=== PATIENT | female | born 1965 | race Caucasian/White ===

== ENCOUNTER → 2018-12-15 08:12 | Outpatient (CLI) | payer BC, SELFPAY ==
[2018-12-15 08:55] LABS: Basophils # 0.1 K/mm3 (0-0.2); Basophils % 0.7 % (0.1-2.0); Eosinophils # 0.1 K/mm3 (0.0-0.4); Eosinophils % 1.5 % (0.1-12.0); Hematocrit 46.7 % (37.0-47.0); Hemoglobin 15.7 g/dL (12.2-16.2); Lymphocytes # 2.4 K/mm3 (0.7-4.5); Lymphocytes % 36.2 % (10-50); Mean Corpuscular HGB Conc 33.6 g/dL (31.8-35.4); Mean Corpuscular Hemoglobin 29.7 pg (27.0-31.2); Mean Corpuscular Volume 88.6 fl (81-99); Mean Platelet Volume 7.5 fl (7.4-10.4); Monocytes # 0.4 K/mm3 (0.1-1.0); Monocytes % 5.3 % (1.7-9.3); Neutrophils # 3.7 K/mm3 (1.8-7.8); Neutrophils % 56.2 % (37.0-80.0); Platelet Count 336 K/mm3 (142-424); Red Blood Count 5.27 M/mm3 (4.20-5.40); Red Cell Distribution Width 13.8 % (11.5-17.5); White Blood Count 6.5 K/mm3 (4.8-10.8)
[2018-12-15 10:29] LABS: Alanine Aminotransferase 31 U/L (12-78); Albumin Level 3.5 gm/dL (3.4-5.0); Albumin/Globulin Ratio 1.1 (1.1-1.8); Alkaline Phosphatase 105 U/L (46-116); Anion Gap 15.4 mEq/L (5-15); Aspartate Amino Transferase 12 U/L (15-37); Bilirubin,Total 0.4 mg/dL (0.2-1.0); Blood Urea Nitrogen 11 mg/dL (7-18); Calcium 9.3 mg/dL (8.5-10.1); Carbon Dioxide 25 mmol/L (21.0-32.0); Chloride 104 mmol/L (98-107); Chol/HDL Ratio 6.9 (1-3.5); Cholesterol 235 mg/dL (140-200); Creatinine,Serum 1.04 mg/dL (0.55-1.02); Estimated Glomerular Filt Rate 55 ml/min (>60); GFR (African American) 67 ML/MIN (>60); Globulin 3.1 gm/dl (1.3-3.2); Glucose 106 mg/dL (74-106); HDL Cholesterol 34 mg/dL (29-89); LDL Cholesterol 152 mg/dL (0-130); Potassium 4.4 mmoL/L (3.5-5.1); Sodium 140 mmol/L (136-145); Total Protein,Serum 6.6 gm/dL (6.4-8.2); Triglycerides 243 mg/dL (30-200); Uric Acid 6.1 mg/dL (2.6-7.2); VLDL Cholesterol 49 mg/dL (0-40)
[2018-12-15 10:41] LABS: Hemoglobin A1C 6.1 % (0.0-7.0)
[2018-12-15 10:45] LABS: Erythrocyte Sedimentation Rate 16 mm/hr (0-30)
[2018-12-17 09:45] LABS: Vitamin B12 526 pg/mL (232-1245); Vitamin D 25 Hydroxy 22.4 ng/mL (30.0-100.0)
== END ==
PROVIDERS: Visit Provider Nurse Practitioner Family
DX: E78.5 Hyperlipidemia, unspecified (principal); R73.9 Hyperglycemia, unspecified; E53.8 Deficiency of other specified B group vitamins; I10 Essential (primary) hypertension; M25.542 Pain in joints of left hand; M25.541 Pain in joints of right hand
CPT/HCPCS: 36415; 80053; 80061; 82607; 82652; 83036; 84443; 84550; 85025; 85651

== ENCOUNTER → 2020-01-31 12:36 | Outpatient (CLI) | payer BC, SELFPAY ==
[2020-01-31 13:30] LABS: Basophils # 0.1 K/mm3 (0-0.2); Basophils % 1.1 % (0.1-2.0); Eosinophils # 0.2 K/mm3 (0.0-0.4); Eosinophils % 2.6 % (0.1-12.0); Hematocrit 45.1 % (37.0-47.0); Lymphocytes # 2.4 K/mm3 (0.7-4.5); Lymphocytes % 42.8 % (10-50); Mean Corpuscular HGB Conc 33.2 g/dL (31.8-35.4); Mean Corpuscular Hemoglobin 30.2 pg (27.0-31.2); Mean Corpuscular Volume 91.1 fl (81-99); Mean Platelet Volume 7.9 fl (7.4-10.4); Monocytes # 0.4 K/mm3 (0.1-1.0); Monocytes % 7.2 % (1.7-9.3); Neutrophils # 2.6 K/mm3 (1.8-7.8); Neutrophils % 46.2 % (37.0-80.0); Platelet Count 299 K/mm3 (142-424); Red Blood Count 4.95 M/mm3 (4.20-5.40); White Blood Count 5.7 K/mm3 (4.8-10.8)
[2020-01-31 13:49] LABS: Hemoglobin A1C 6.2 % (4.0-6.0)
[2020-01-31 16:03] LABS: Alanine Aminotransferase 30 U/L (12-78); Albumin Level 3.9 g/dl (3.5-5.0); Albumin/Globulin Ratio 1.4 (1.1-1.8); Alkaline Phosphatase 113 U/L (38-126); Aspartate Amino Transferase 31 U/L (14-36); Bilirubin,Total 0.4 mg/dl (0.2-1.3); Blood Urea Nitrogen 12 mg/dl (7-17); Calcium 9.9 mg/dl (8.4-10.2); Carbon Dioxide 28 mmol/L (22.0-30.0); Chloride 103 mmol/L (98-107); Chol/HDL Ratio 6.5 (1-3.5); Cholesterol 261 mg/dl (140-200); Estimated Glomerular Filt Rate 65 ml/min (>60); GFR (African American) 79 ML/MIN (>60); Globulin 2.7 g/dL (1.3-3.2); Glucose 106 mg/dl (74-100); HDL Cholesterol 40 mg/dl (40-60); Sodium 139 mmol/L (136-145); Total Protein,Serum 6.6 g/dl (6.3-8.2); Triglycerides 316 mg/dl (30-150); VLDL Cholesterol 63 mg/dL (0-40)
[2020-01-31 16:13] LABS: Direct LDL Cholesterol 170.12 mg/dL (100-129)
[2020-01-31 16:51] LABS: Vitamin B12 828 pg/mL (239-931)
== END ==
PROVIDERS: Visit Provider Nurse Practitioner Family
DX: E78.5 Hyperlipidemia, unspecified (principal); I10 Essential (primary) hypertension; R73.9 Hyperglycemia, unspecified; E53.8 Deficiency of other specified B group vitamins; M25.461 Effusion, right knee
CPT/HCPCS: 36415; 80053; 80061; 82607; 83036; 84550; 85025

== ENCOUNTER → 2020-10-22 13:20 | Outpatient (CLI) | payer BC, SELFPAY ==
--- NOTE | 2020-10-22 13:26 | XR_ITS ---
PROCEDURE: XR HIP RT 2-3V W/PELVIS CLINICAL INDICATION: RIGHT HIP PAIN COMPARISON: CR [id number] HIP RT 2-3V W/PELVIS IF PERFOR from 01/05/2017 FINDINGS: No fracture or dislocation is evident. No significant degenerative change. No lytic or blastic change. Unremarkable soft tissues. IMPRESSION: No acute findings. Dictated by: Sha Baires MD 10/22/2020 17:30 Sha Baires MD in [place] 10/22/2020 17:30
--- NOTE | 2020-10-22 13:29 | XR_ITS ---
PROCEDURE: XR LUMBAR SPINE MIN 4V CLINICAL INDICATION: ACUTE RIGHT SIDED LOWER BACK PAIN COMPARISON: No exams were available for comparison FINDINGS: No fracture or dislocation. No lytic or blastic change. There is normal mineralization. There is sclerosis of the lower aspect of the left SI joint. Calcification of the iliolumbar ligament noted on the left at L5. There is degenerative disc disease T12 to L4 most severe at L2-L3. Endplate osteophytes are present from L1-L5. There is degenerative disc disease at L5-S1. Facet hypertrophic changes with sclerosis is present at L5-S1. Other findings:None. IMPRESSION: Degenerative changes as described above. Dictated by: Sha Baires MD 10/22/2020 17:29 Sha Baires MD in [place] 10/22/2020 17:29
== END ==
PROVIDERS: PCP Nurse Practitioner Family; Visit Provider Nurse Practitioner Family
DX: M25.551 Pain in right hip (principal); M54.41 Lumbago with sciatica, right side
CPT/HCPCS: 72110; 73502

== ENCOUNTER 2020-11-15 09:30 | Outpatient (RCR) | payer BC, SELFPAY ==
--- NOTE | 2020-10-31 15:18 | HMH.PTOPEV ---
PT Outpatient Evaluation Rehab PT Outpatient Evaluation Start: 10/31/20 14:17 Freq: Status: Active Protocol: Document 10/31/20 14:59 KRIS (Rec: 10/31/20 15:17 KRIS [id number]) Electronically Signed By Warren Dunn, PT 10/31/20 14:59 Outpatient Therapy Subjective History Subjective History Patient is a 55 year old female presenting to outpatient PT with reports of chronic LBP with acute RLE radicular symptoms. She was referred for LBP with sciatica and IT band syndrome. Most recent imaging indicates multi -level DDD and osteophytes of the entire lumbar spine. R hip imaging negative. Special tests indicate relief of RLE symptoms with lumbar extension indicating possible disc pathology. Comorbidties include hx of CS discectomy ( 12 ya), LS discectomy (15 ya) and HTN. Chief Complaint Pain,Spasms,Stiff,Weakness Symptom Type Ache,Dull Symptoms Relieved By Rest/Positioning,Heat,Ice, Prescription Meds Symptoms Aggravated By Standing,Bending/Stooping, Physical Activity,Walking, Lifting Current Functional Limitations Lifting,Housework,Standing, Recreation Activity,Walking, Stairs,Balance,Bending/ Stooping Symptom Description Constant but Variable Level of pain today (0-10) 5 Pain scale - at its best (0-10) 4 Pain scale - at its worst (0-10) 9 Lumbopelvic Eval Posture Thoracic Spine Posture Standing Position Increased Kyphosis Lumbar Spine Posture Standing Position Increased Lordosis Assistive device Assistive Devices None / NA Palapation tenderness right lumbar spinal tenderness Yes: L1-S1 3/4 paraspinal tenderness Yes: buttock tenderness Yes: 3/4 Accessory Movement L-spine Vertebrae Accessory Movements Right P/A Gunlock that Elicit Symptoms L2 right L3 right L4 right L5 right S1 right Range of Motion Lumbar Spine Active Flexion Range of 30 pain Motion (degrees) Lumbar Spine Active Extension Range of 20 Motion (degrees)
== END 2020-11-20 09:35 | disposition home or self-care (01) ==
LOC: PT 09:30
PROVIDERS: Visit Provider Nurse Practitioner Family
DX: M54.41 Lumbago with sciatica, right side (principal); M76.31 Iliotibial band syndrome, right leg
CPT/HCPCS: 97010; 97014; 97110; 97163; G0283

== ENCOUNTER → 2021-05-08 15:56 | Outpatient (CLI) | payer BC, SELFPAY ==
[2021-05-08 17:11] LABS: Blood Urea Nitrogen 15 mg/dl (7-17); Estimated Glomerular Filt Rate 65 ml/min (>60); GFR (African American) 78 ML/MIN (>60)
== END ==
PROVIDERS: PCP Nurse Practitioner Family; Visit Provider Nurse Practitioner Family
DX: Z01.812 Encounter for preprocedural laboratory examination (principal)
CPT/HCPCS: 36415; 82565; 84520

== ENCOUNTER → 2021-05-09 16:48 | Outpatient (CLI) | payer BC, SELFPAY ==
--- NOTE | 2021-05-09 17:11 | MR_ITS ---
PROCEDURE INFORMATION: Exam: MR Lumbar Spine Without and With Contrast Exam date and time: 05/09/2021 5:11 PM Age: 55 years old Clinical indication: Low back pain; Prior surgery; Surgery date: 6+ months; Additional info: Lumbago with sciatica, right side. HX back surgery x12yrs ago. Lbp with RT hip pain and posterior aspect of calf. Numbness in RT leg. Symptoms x3wks. No injury or trauma. 20ml prohance given. TECHNIQUE: Imaging protocol: Multiplanar magnetic resonance images of the lumbar spine without and with intravenous contrast. Contrast material: PROHANCE; Contrast volume: 20 ml; Contrast route: IV; COMPARISON: CR XR LUMBAR SPINE MIN 4V 10/22/2020 1:47 PM FINDINGS: Vertebrae: Vertebral body heights and alignment are within normal limits. There is multilevel degenerative disc disease and degenerative endplate change. Marrow signal is heterogeneous. There may be some Modic type 1 change in the superior endplate of L4. Spinal epidural space: Post gadolinium spine: Following administration of intravenous gadolinium, there is some enhancement of the anterior epidural fat along the posterior edge of the L3 and L4 vertebral bodies. No disc or significant paraspinal enhancement is identified. Spinal cord: The conus medullaris is normal in appearance terminating at the level of L1/2. L1-L2: There is a shallow disc bulge, bilateral facet arthropathy and ligamentum flavum infolding. The spinal canal and neural foramina are adequate. L2-L3: There is a shallow disc bulge, bilateral facet arthropathy and ligamentum flavum infolding. This results in mild central canal stenosis. There is mild left neural foraminal stenosis. The right neural foramen is adequate. L3-L4: There is a shallow disc bulge with right lateral recess disc herniation. There is bilateral facet arthropathy and ligamentum flavum infolding. This results in effacement of the right lateral recess, and moderate spinal stenosis. There is moderate right neural foraminal stenosis. Left neural foramen is adequate. L4-L5: There is a broad based disc bulge, bilateral facet arthropathy and ligamentum flavum infolding. This results in mild central canal stenosis. There is mild left neural foraminal stenosis. The right neural foramen is adequate. L5-S1: There is severe loss of disc height. There is a broad-based disc bulge and bilateral facet arthropathy. The central canal is adequate. There is mild left neural foraminal stenosis. The right neural foramen is adequate. Soft tissues: Unremarkable. IMPRESSION: 1. Multilevel lumbar spondylosis. 2. Disc bulge with right lateral recess disc herniation at L3/4. This results in severe right lateral recess stenosis, moderate central canal stenosis, and probable compression of the traversing L4 nerve root in the right lateral recess. 3. Mild spinal stenosis at L2/3 and L4/5. 4. Neural foraminal stenosis as described. Please see above for detail.
== END ==
PROVIDERS: PCP Nurse Practitioner Family; Visit Provider Nurse Practitioner Family
DX: M54.41 Lumbago with sciatica, right side (principal)
CPT/HCPCS: 72158; 76376; A9576

== ENCOUNTER 2021-06-23 10:20 | Emergency (ER) | payer BC, SELFPAY ==
[2021-06-23 11:12] VITALS: BP 112/79; PULSE 107; RESP 17; TEMP 37.4; O2SAT 96; BMI 32.8
[2021-06-23 11:17] LABS: UTC Strep Screen (Rapid) Negative (Negative)
--- NOTE | 2021-06-23 12:16 | HMH.EDUTC ---
[facility] Disposition Clinical Impression: Pharyngitis Qualifiers: Pharyngitis/tonsillitis etiology: unspecified etiology Qualified Code(s): J02.9 - Acute pharyngitis, unspecified Sinusitis Qualifiers: Sinusitis location: unspecified location Chronicity: acute Recurrence: non-recurrent Qualified Code(s): J01.90 - Acute sinusitis, unspecified Disposition: Home, Self-Care Condition on Discharge: Good Instructions: DI for Sinusitis Additional Instructions: Drink plenty of fluids. Take tylenol or ibuprofen for pain or fever. Take the medications as directed. Follow up with your regular doctor. GO TO THE ER FOR ANY WORSENING SYMPTOMS Quarantine until you know the results of your covid-19 test. Notify your school or workplace of your results and follow their instructions regarding return to work/school. Prescriptions: Promethazine/Dextromethorphan [Promethazine-Dm Syrup] 5 ml PO Q6HP PRN #180 ml PRN Reason: Cough Transmission Status: Received by [id number] methylPREDNISolone [Medrol] 4 mg PO DIRECTED 6 Days #21 packet Transmission Status: Received by [id number] Azithromycin [Z-Isaak 250mg Tab*] 250 mg PO UD DOSE PK #6 tab Transmission Status: Received by [id number] Referrals: Mirela Siegel APRN [Primary Care Provider] - Time of Disposition: 12:49 Medical Decision Making - Medical Records Medical records reviewed: No: I reviewed the patient's medical records. - Maged Inquiry Pt receiving controlled substance: No Vital Signs: 06/23/21 11:12 06/23/21 12:51 Temperature 99.4 F 99.4 F Temperature Source Oral Pulse Rate 107 H Pulse Rate [Right] 107 H Respiratory Rate 17 17 Blood Pressure 112/79 Blood Pressure [Left Arm] 112/79 Blood Pressure Mean [Left Arm] 90 02 Sat by Pulse Oximetry 96 - Lab Data Lab results reviewed: Yes: I reviewed the patient's lab results. Lab Results 06/23/21 11:09: Strep Scn Rapid Clinic Negative Orders (Tests/Meds): ORDERS Category Date Time Status Strep Screen Confirmation Stat Micro 06/23/21 11:09 Received [facility] HPI - General Stated complaint: sinus congestion, stiff neck, sore throat Time Seen by Provider: 06/23/21 12:16 Mode of Arrival: Ambulatory Source of Information: Patient Limitations: No Limitations Description of Symptoms (Recalled from Triage Doc. by RN): pt c/o a sore throat, cough and nasal drainage x3 days. HEENT Symptoms (Recalled from RN notes): Yes Resp Symptoms (Recalled from RN notes): Yes Skin Symptoms (Recalled from RN notes): No MS Symptoms (Recalled from RN notes): No Functional Status (Recalled from RN notes): wnl - History of Present Illness Provider Complaint: She c/o sore throat for suellen past 3 days. - Related Data Home Medications Medication Instructions Recorded Confirmed aspirin 81 mg tablet,delayed 81 mg PO DAILY 12/20/18 03/03/19 release citalopram 20 mg tablet 10 mg PO DAILY 12/20/18 03/03/19 varenicline 0.5 mg tablet 0.5 mg PO DAILY 12/20/18 03/03/19 Cetirizine HCl [Zyrtec] 10 mg PO DAILY 01/05/19 03/03/19 Ergocalciferol (Vitamin D2) 400 unit PO DAILY 01/05/19 03/03/19 [Vitamin D] hydroCHLOROthiazide 12.5 mg PO DAILY 01/05/19 03/03/19 [Hydrochlorothiazide 12.5mg Tab] Previous Rx's Medication Instructions Recorded amoxicillin 500 mg capsule 500 mg PO Q12H PRN 10 Days #20 cap 03/03/19 Azithromycin [Z-Isaak 250mg Tab*] 250 mg PO UD DOSE PK #6 tab 06/23/21 Promethazine/Dextromethorphan 5 ml PO Q6HP PRN #180 ml 06/23/21 [Promethazine-Dm Syrup] methylPREDNISolone [Medrol] 4 mg PO DIRECTED 6 Days #21 06/23/21 packet Allergies Allergy/AdvReac Type Severity Reaction Status Date / Time oxycodone [From Percocet] AdvReac DROWSINESS Verified 03/03/19 12:13 - Worker's Comp Is this a Worker's Comp case?: No [facility] History - Hepatitis A Screen Drug use history?: No High risk sexual behaviors?: No History of sexually transmitted
[2021-06-23 12:51] VITALS: BP 112/79; PULSE 107; RESP 17; TEMP 37.4
== END 2021-06-23 12:52 | disposition home or self-care (01) ==
PROVIDERS: Emergency Provider Nurse Practitioner Family; PCP Nurse Practitioner Family
DX: J02.9 Acute pharyngitis, unspecified (principal); J01.90 Acute sinusitis, unspecified; F17.210 Nicotine dependence, cigarettes, uncomplicated
CPT/HCPCS: 87880; 99203; C9803; G0463; U0003; U0005

== ENCOUNTER → 2021-07-11 10:48 | Outpatient (CLI) | payer BC, SELFPAY ==
--- NOTE | 2021-07-11 10:53 | XR_ITS ---
FINAL REPORT CLINICAL HISTORY: SMOKER, PRE-OP FINDINGS: Two views of the chest were obtained. The heart size and pulmonary vascularity are within normal limits. The mediastinum is normal. There is mild bronchial wall thickening may represent bronchitis. There is no pneumothorax. There are postoperative changes of the lower cervical spine. IMPRESSION: Mild bronchial wall thickening may represent bronchitis. Reviewed, Interpreted and Dictated by Dilshad Lyon III, MD Transcribed by Everett Leal Authenticated by Dilshad Lyon III, MD on 07/11/2021 11:16:00 AM [facility]
== END ==
PROVIDERS: PCP Nurse Practitioner Family; Visit Provider Nurse Practitioner Family
DX: R05.9 Cough, unspecified (principal)
CPT/HCPCS: 71046

== ENCOUNTER → 2021-12-02 16:10 | Outpatient (CLI) | payer BC, SELFPAY | PROVIDERS: PCP Nurse Practitioner Family; Visit Provider Internal Medicine | DX: Z01.812 Encounter for preprocedural laboratory examination (principal); Z20.822 Contact with and (suspected) exposure to COVID-19; Z12.11 Encounter for screening for malignant neoplasm of colon | CPT/HCPCS: C9803; U0003; U0005 ==

== ENCOUNTER 2021-12-04 11:20 | Day surgery (SDC) | payer BC, SELFPAY ==
[2021-11-28 14:50] VITALS: BMI 33.6
[2021-12-04 11:34] VITALS: BP 115/67; PULSE 60; RESP 17; TEMP 36.3; O2SAT 96
--- NOTE | 2021-12-04 11:53 | P.PN_ITS ---
[facility] Anesthesia Checklist - Patient Identification Patient Identification: Arm Band - Structural Data Admitted From: Home Planned Operative Procedure/s: Colonoscopy Consent for Planned Operative Procedure(s) Verified: Yes - NPO Status Verified Time NPO: 07:00 - Additional verifications Anesthesia Reactions: No Hx Blood Transfusions: No Blood Transfusion Reaction: No - Airway Assessment C-Spine Mobility Assessed: Yes TMJ Mobility Assessed: Yes Dentition: Poor Dentition - Neurological Assessment Level of Consciousness: Awake Hx Seizures: No Numbness or tingling in extremities: No - Anesthesia Plan Anesthesia Risk discussed: Yes Anesthesia Plan: Verified ASA Class: II Anesthesia Type: MAC [facility] History I have reviewed the patient's past medical history: Yes Medical History: Reports:: Depression, Hypertension Denies:: Cancer, Diabetes Mellitus Type 1, Diabetes Mellitus Type 2, Internal Pacemaker, MRSA, Seizures *Have you ever received a pneumonia vaccine?: No *Have you received a flu vaccine this season?: Yes Other Medical History: Denies: Blood Transfusion Reaction Anesthesia experience/problems:: None Other Surgeries: Yes: Tubal Ligation, Other. No: Pacemaker Amputation: No Fractures: No - *Social History Last grade of school completed: High school graduate Smoking Status: Current every day smoker Tobacco Type: cigarettes # Packs/Day (cigarettes): 1 Alcohol Intake: never Substance Use Type: denies use *Occupational Status:: employed Housing: house Household Members: none *Travel in the last 8 weeks: None - Psychiatric History Pschychiatric History:: Reports:: Depression Family Hx:: Cancer, Hypertension, Hyperlipidemia
[2021-12-04 12:03] VITALS: O2SAT 96
[2021-12-04 12:36] VITALS: BP 112/72; PULSE 68; RESP 18; TEMP 36.2; O2SAT 93
--- NOTE | 2021-12-04 12:36 | HMH.SCOPE ---
- Procedure: Date: 12/04/21 Patient Date of :: 1965 Procedure Performed:: Screening colonoscopy Indications:: Screening colonosocopy Performing Provider:: Roldan Allen MD Referring Provider:: Mirela Siegel APRN Sedation:: See RN records Procedure:: After placing the patient in the left lateral decubitus position, the colonoscopy was gently inserted into the rectum and under direct visualization advanced to the cecum which was identified by transillumination in the right lower quadrant, identification of the ileocecal valve, appendiceal orifice, and cecal strap. Color, texture, mucosa, and anatomy of the colon were carefully examined with the scope. Findings:: Anal canal: normal Rectum: Six sessile polyps beween 3-5 mm in size. Removed with cold snare polypectomy Sigmoid colon: normal without polyps or inflammatory changes Descending colon: Sessile polyp 10 mm in size. Removed with cold snare polypectomy Splenic flexure: normal Transverse colon: normal without polyps or inflammatory changes Hepatic flexure: normal Ascending colon: normal without polyps or inflammatory changes Cecum: normal Terminal ileum: not visualized Impression: Polyps of rectum and proximal descending colon Recommendations:: Await pathology results Repeat colonoscopy in 3 years Complications:: none Estimated blood obtained (mL): 0
[2021-12-04 12:46] VITALS: BP 109/72; PULSE 70; RESP 18; TEMP 36.2; O2SAT 98
[2021-12-04 12:56] VITALS: BP 109/70; PULSE 68; RESP 18; TEMP 36.2; O2SAT 96
[2021-12-04 13:08] VITALS: BP 109/70; PULSE 68; RESP 18; TEMP 36.2; O2SAT 96
== END 2021-12-04 13:08 | disposition home or self-care (01) ==
LOC: OUTP 11:21
PROVIDERS: PCP Nurse Practitioner Family; Visit Provider Internal Medicine
PROC: 0DJD8ZZ Inspection of Lower Intestinal Tract, Via Natural or Artificial Opening Endoscopic (ICD-10-PCS; CPT 45378; principal; 2021-12-04 12:30)
DX: Z12.11 Encounter for screening for malignant neoplasm of colon (principal); K63.5 Polyp of colon; I10 Essential (primary) hypertension; Z72.0 Tobacco use
CPT/HCPCS: 45385

== ENCOUNTER → 2021-12-06 12:33 | Outpatient (CLI) | payer BC, SELFPAY ==
--- NOTE | 2021-12-06 | CT_ITS ---
FINAL REPORT TECHNIQUE: Axial images were obtained from the lung apex to the mid abdomen by computed tomography. This study was performed with techniques to keep radiation doses as low as reasonably achievable (ALARA). Individualized dose reduction techniques using automated exposure control or adjustment of mA and/or kV according to the patient's size were employed. CLINICAL HISTORY: .smoker-- 1/2 pack x 25 yrs FINDINGS: CHEST CT LOW DOSE CTDI vol (mGy): 2.90 DLP (mGy-cm): 96.38 There is no axillary adenopathy. There is no hilar or mediastinal adenopathy. The heart is normal in size. There is no pericardial or pleural effusion. There is a 2 mm nodule in the medial right upper lobe both seen on image number 23. There is a 3 mm nodule near the major fissure well seen on image number 35. Limited images of the upper abdomen are unremarkable. IMPRESSION: Nodules as above. Lung RADS category 2. Recommend 12 month follow-up low-dose chest CT. Reviewed, Interpreted and Dictated by Dilshad Lyon III, MD Transcribed by Dina Garland Authenticated and [facility]
== END ==
PROVIDERS: PCP Nurse Practitioner Family; Visit Provider Nurse Practitioner Family
DX: Z87.891 Personal history of nicotine dependence (principal); Z12.2 Encounter for screening for malignant neoplasm of respiratory organs
CPT/HCPCS: 71271

== ENCOUNTER → 2022-08-02 11:28 | Outpatient (CLI) | payer BC, SELFPAY ==
[2022-08-02 13:13] LABS: Basophils # 0.1 K/mm3 (0-0.2); Basophils % 1.8 % (0.1-2.0); Eosinophils # 0.1 K/mm3 (0.0-0.4); Eosinophils % 1.9 % (0.1-12.0); Hematocrit 50.9 % (37.0-47.0); Hemoglobin 16.4 g/dL (12.2-16.2); Lymphocytes % 37.4 % (10-50); Mean Corpuscular HGB Conc 32.3 g/dL (31.8-35.4); Mean Corpuscular Hemoglobin 30.5 pg (27.0-31.2); Mean Corpuscular Volume 94.4 fl (81-99); Mean Platelet Volume 8.6 fl (7.4-10.4); Monocytes # 0.4 K/mm3 (0.1-1.0); Monocytes % 6.8 % (1.7-9.3); Neutrophils # 2.8 K/mm3 (1.8-7.8); Platelet Count 265 K/mm3 (142-424); Red Blood Count 5.39 M/mm3 (4.20-5.40); White Blood Count 5.4 K/mm3 (4.8-10.8)
[2022-08-02 13:25] LABS: Chloride 104 mmol/L (98-107); Potassium 4.9 mmoL/L (3.5-5.1); Sodium 141 mmol/L (136-145)
[2022-08-02 13:27] LABS: Amylase 59 U/L (30-110)
[2022-08-02 13:28] LABS: Alanine Aminotransferase 28 U/L (12-78); Albumin/Globulin Ratio 1.6 (1.1-1.8); Alkaline Phosphatase 98 U/L (38-126); Anion Gap 12.9 mEq/L (5-15); Aspartate Amino Transferase 31 U/L (14-36); Bilirubin,Total 0.4 mg/dl (0.2-1.3); Blood Urea Nitrogen 7 mg/dl (7-17); Calcium 9.4 mg/dl (8.4-10.2); Carbon Dioxide 29 mmol/L (22.0-30.0); Estimated Glomerular Filt Rate 65 ml/min (>60); GFR (African American) 78 ML/MIN (>60); Globulin 2.5 g/dL (1.3-3.2); Glucose 88 mg/dl (74-100); Lipase 64 U/L (23-300); Total Protein,Serum 6.5 g/dl (6.3-8.2)
== END ==
PROVIDERS: PCP Nurse Practitioner Family; Visit Provider Nurse Practitioner Family
DX: R10.10 Upper abdominal pain, unspecified (principal); R11.10 Vomiting, unspecified; R19.7 Diarrhea, unspecified
CPT/HCPCS: 36415; 80053; 82150; 83690; 85025

== ENCOUNTER → 2022-08-08 10:21 | Outpatient (CLI) | payer BC, SELFPAY ==
--- NOTE | 2022-08-08 10:24 | FL_ITS ---
FINAL REPORT CLINICAL HISTORY: DIARRHEA,ABD PAIN,VOMITING 1:35 fluoro time FINDINGS: AIR CONTRAST UPPER GI HISTORY: Nausea and vomiting, diarrhea. TECHNIQUE: The patient ingested thick and thin barium contrast. Effervescent crystals were also administered. Spot and overhead films were performed. A total of 48 images were saved. FINDINGS: The esophagus demonstrates no morphologic abnormalities. No mucosal defects are seen. There is mild esophageal dysmotility. The stomach is of normal size, shape and position. No gastric filling defects are seen. The duodenal bulb appears unremarkable. There is a moderate duodenal diverticulum identified. Gastroesophageal reflux is seen to the midesophagus. 13 mm barium tablet passes easily through the esophagus and into the stomach. FLUOROSCOPY TIME: 1 minute, 35 seconds IMPRESSION: Mild esophageal dysmotility. Gastroesophageal reflux. Duodenal diverticulum. Reviewed, Interpreted and Dictated by Dilshad Lyon III, MD Transcribed by Deepthi Phillips PA-C Authenticated and . [facility]
== END ==
LOC: RAD 10:21
PROVIDERS: PCP Nurse Practitioner Family; Visit Provider Nurse Practitioner Family
DX: R10.9 Unspecified abdominal pain (principal); R11.10 Vomiting, unspecified; R19.7 Diarrhea, unspecified
CPT/HCPCS: 74246

== ENCOUNTER 2022-10-30 12:32 | Day surgery (SDC) | payer BC, SELFPAY ==
[2022-10-20 11:14] VITALS: BMI 30.5
[2022-10-30 13:05] VITALS: BP 128/78; PULSE 66; RESP 18; TEMP 36.1; O2SAT 97
--- NOTE | 2022-10-30 13:16 | P.PN_ITS ---
[facility] Disclaimer: The information contained in this section may have been updated after the patient was seen, as this information can be updated by other users. Medical History Allergies Gout History of gastroesophageal reflux (GERD) Hyperlipidemia Hypertension Surgical History History of back surgery History of bilateral tubal ligation History of cholecystectomy Family History Other Family history of acute congestive heart failure Family history of diabetes mellitus type II Family history of hyperlipidemia Family history of hypertension Family history of stroke Social History Smoking Status: Current every day smoker tobacco type: cigarettes packs per day: 1 pack-years: 35 alcohol intake: never substance use type: denies use current occupational status: retired Travel in the last 8 weeks: None household members: none housing: house lives independently: Yes marital status: education level: high school service: No mcfp: No current occupation: [employer] current occupational exposures/hazards: No caffeine: No special leslie needs: No do you feel safe at home: Yes victim of physical abuse: No victim of emotional abuse: No victim of sexual abuse: No would you like helpful sources: No [facility] Anesthesia Checklist Patient Identification Patient Identification: Arm Band and Verbal (Name & ) Structural Data Admitted From: Home Planned Operative Procedure/s: EGD Consent for Planned Operative Procedure(s) Verified: Yes Verified Documents: Surgical Consent and History and Physical NPO Status Verified Time NPO: 00:00 Additional verifications Anesthesia Reactions: No Hx Blood Transfusions: No Blood Transfusion Reaction: No Airway Assessment C-Spine Mobility Assessed: Yes TMJ Mobility Assessed: Yes Dentition: Dentures-good fit Neurological Assessment Level of Consciousness: Awake and Alert Hx Seizures: Yes Anesthesia Plan Anesthesia Risk discussed: Yes ASA Class: II Anesthesia Type: MAC
[2022-10-30 13:50] VITALS: O2SAT 97
[2022-10-30 14:05] VITALS: BP 95/64; PULSE 63; RESP 14; TEMP 36.6; O2SAT 97
--- NOTE | 2022-10-30 14:06 | HMH.SCOPE ---
Procedure: Date: 10/30/22 Patient Date of :: 1965 Procedure Performed:: EGD & bougie dilation Indications:: Dysphagia, dysmotility seen on UGI series Performing Provider:: Marina Simpson MD Referring Provider:: Mirela Siegel Sedation:: Propofol Procedure:: The gastroscope was gently passed through the incisoral orifice into the oral cavity and under direct visualization the esophagus was intubated. The endoscope was passed down the esophagus, through the stomach, and into the duodenum. Color, texture, mucosa, and anatomy of the esophagus, stomach, and duodenum were carefully examined with the scope. Findings:: Oropharynx: normal Esophagus: overall normal w/o active esophagitis. Bougie therapy performed with several passes of the 56F bougie EG Junction: intact at 40 cm Cardia: normal Fundus: normal Body: normal Antrum: normal Duodenal bulb: normal Duodenum (second and third portion): diverticulum noted Impression: Symptomatic dysphagia treated with bougie dilation Duodenal diverticulum Recommendations:: Repeat dilation in about THREE years or so as clinically indicated. Complications:: None Estimated blood obtained (mL): 0 Colonoscopy Component Colonoscopy Component Was a colonoscopy performed during today's procedure?: No
[2022-10-30 14:15] VITALS: BP 110/70; PULSE 64; RESP 16; O2SAT 98
[2022-10-30 14:25] VITALS: BP 108/71; PULSE 71; RESP 16; O2SAT 94
[2022-10-30 14:35] VITALS: BP 102/66; PULSE 66; RESP 17; TEMP 36.7; O2SAT 97
== END 2022-10-30 14:35 | disposition home or self-care (01) ==
PROVIDERS: PCP Nurse Practitioner Family; Visit Provider Internal Medicine Gastroenterology
PROC: 0DJ08ZZ Inspection of Upper Intestinal Tract, Via Natural or Artificial Opening Endoscopic (ICD-10-PCS; CPT 43235; principal; 2022-10-30 13:30)
DX: R13.10 Dysphagia, unspecified (principal); K57.10 Diverticulosis of small intestine without perforation or abscess without bleeding
CPT/HCPCS: 43248

== ENCOUNTER → 2023-02-05 13:05 | Outpatient (CLI) | payer BC, SELFPAY ==
--- NOTE | 2023-02-05 13:12 | MR_ITS ---
CLINICAL INDICATION Volunteer, no symptoms TECHNIQUE Image Acquisition: Cardiac magnetic resonance (CMR) was performed on Siemens Espree MRI 1.5T scanner. Software platform sequences were performed using the Siemens Kidos MR B19 platform. A set of three-plane, low-resolution, large [id number] localizers were initially acquired. Then axial, coronal, and sagittal TrueFISP, and axial HASTE images were obtained. These were followed by gated TrueFISP breathold cinematic sequences obtained in the short axis with 8 mm slices and 2 mm gaps, 2-chamber (vertical long axis), 3-chamber, 4-chamber (horizontal long axis). A bolus of contrast was injected intravenously with first-pass sequences obtained in the short axis and four-chamber planes. After approximately 10 minutes, a TI fabric inspector sequence was performed to determine the optimal TI time. Using the optimized TI time, delayed contrast enhancement segmented inversionrecovery TurboFLASH sequences were obtained in the short axis, 2- chamber, 3-chamber, and 4-chamber projections. 2D-velocity phase mapping was performed. Functional parameters were calculated by offline analysis on an independent workstation ([employer], [employer]). Contrast: ProHance? (Gadoteridol) FINDINGS See below for the full quantitative analysis report. MORPHOLOGY AND FUNCTION Left ventricle: The left ventricle is normal in size. The indexed left ventricular end-diastolic volume (LVEDVi) is 53 ml/m2 (reference range 57-105 ml/m2 in males, 56-96 ml/m2 in females). Normal left ventricular systolic function is present. There is normal left ventricular wall thickness. There are no regional wall motion abnormalities noted. LVEF is calculated at 58% (reference range 57-77%). Right ventricle: The right ventricle is normal in size. The indexed right ventricular end-diastolic volume (RVEDVi) is 47 ml/m2 (reference range 61-121 ml/m2 in males, 48-112 ml/m2 in females). Normal right ventricular systolic function is present. RVEF is calculated at 53% (reference range 52-72% in males, 51-71% in females). Atria: The left atrium is normal in size. The maximum indexed left atrial volume is 29 ml/m2 (reference range 26-52 ml/m2 in males, 27-53 ml/m2 in females). The right atrium is normal in size. The maximum indexed right atrial volume is 15 ml/m2 (reference range 18-90 ml/m2). Aorta: The diameter of the aortic annulus is normal, measuring 20 mm (coronal view reference range 21-30 mm in males, 19-27 mm in females). The diameter of the aortic sinus is normal, measuring 26 mm (coronal view reference range 25-42 mm in males, 24-36 mm in females). The diameter of the sinotubular junction is normal, measuring 22 mm (coronal view reference range 18-32 mm in males, 18-28 mm in females). The diameters of the ascending and descending thoracic aorta are normal. Main pulmonary artery: The main pulmonary artery diameter is normal. Pericardium: The pericardial thickness is normal. The pericardial thickness measures 2.3 cm (normal < 4.0 cm). There is no pericardial effusion. VALVES The valvular morphologies in the visualized sequences appear normal. There is no significant valvular stenosis or regurgitation of the mitral, aortic, tricuspid, or pulmonic valve noted visually. Systolic anterior motion of the mitral valve is not visualized. TISSUE CHARACTERIZATION Resting Perfusion: Normal myocardial blood flow at rest. No evidence of resting hypoperfusion. Myocardial Fibrosis and/or edema: Thin stripe of miniimal mid-myocardial late gadolinium enhancement is noted in the basal septum. This finding is non- specific in the setting of normal cardiac systolic function. STIR imaging is not performed in this study. OTHER No other significant findings are noted. However, this exam is focused on the cardiac structure and fun
== END ==
PROVIDERS: PCP Nurse Practitioner Family
DX: Z02.89 Encounter for other administrative examinations (principal)

== ENCOUNTER → 2023-03-17 09:07 | Outpatient (CLI) | payer BC, SELFPAY ==
[2023-03-17 09:47] LABS: Basophils # 0.1 K/mm3 (0-0.2); Basophils % 1.3 % (0.1-2.0); Eosinophils # 0.3 K/mm3 (0.0-0.4); Eosinophils % 3.8 % (0.1-12.0); Hematocrit 43.4 % (37.0-47.0); Hemoglobin 15.7 g/dL (12.2-16.2); Lymphocytes # 2.8 K/mm3 (0.7-4.5); Lymphocytes % 39.9 % (10-50); Mean Corpuscular HGB Conc 36.2 g/dL (31.8-35.4); Mean Corpuscular Hemoglobin 33.8 pg (27.0-31.2); Mean Corpuscular Volume 93.5 fl (81-99); Mean Platelet Volume 8.2 fl (7.4-10.4); Monocytes # 0.4 K/mm3 (0.1-1.0); Monocytes % 5.7 % (1.7-9.3); Neutrophils # 3.5 K/mm3 (1.8-7.8); Neutrophils % 49.3 % (37.0-80.0); Platelet Count 258 K/mm3 (142-424); Red Blood Count 4.64 M/mm3 (4.20-5.40); Red Cell Distribution Width 13.3 % (11.5-17.5); White Blood Count 7.1 K/mm3 (4.8-10.8)
[2023-03-17 10:43] LABS: Potassium 4.3 mmoL/L (3.5-5.1); Sodium 136 mmol/L (136-145)
[2023-03-17 10:45] LABS: Alanine Aminotransferase 22 U/L (12-78); Aspartate Amino Transferase 31 U/L (14-36); Blood Urea Nitrogen 14 mg/dl (7-17); Estimated Glomerular Filt Rate 74 ml/min (>60); GFR (African American) 89 ML/MIN (>60)
[2023-03-17 10:46] LABS: Albumin Level 4.1 g/dl (3.5-5.0); Albumin/Globulin Ratio 1.6 (1.1-1.8); Alkaline Phosphatase 86 U/L (38-126); Bilirubin,Total 0.5 mg/dl (0.2-1.3); Calcium 9.1 mg/dl (8.4-10.2); Carbon Dioxide 27 mmol/L (22.0-30.0); Chol/HDL Ratio 6.9 (1-3.5); Cholesterol 248 mg/dl (140-200); Globulin 2.6 g/dL (1.3-3.2); Glucose 105 mg/dl (74-100); HDL Cholesterol 36 mg/dl (40-60); Total Protein,Serum 6.7 g/dl (6.3-8.2); Triglycerides 166 mg/dl (30-150); VLDL Cholesterol 33 mg/dL (0-40)
[2023-03-17 10:57] LABS: Direct LDL Cholesterol 156.53 mg/dL (100-129)
[2023-03-17 11:16] LABS: Thyroid Stimulating Hormone 2.27 uIU/mL (0.465-4.68)
[2023-03-17 12:17] LABS: Vitamin B12 288 pg/mL (239-931)
[2023-03-17 13:20] LABS: Anion Gap 9.3 mEq/L (5-15); Chloride 104 mmol/L (98-107)
== END ==
PROVIDERS: PCP Nurse Practitioner Family; Visit Provider Nurse Practitioner Family
DX: Z00.00 Encounter for general adult medical examination without abnormal findings (principal); R63.4 Abnormal weight loss; E53.8 Deficiency of other specified B group vitamins; Z87.39 Personal history of other diseases of the musculoskeletal system and connective tissue; Z68.31 Body mass index [BMI] 31.0-31.9, adult
CPT/HCPCS: 36415; 80053; 80061; 82607; 84443; 84550; 85025

== ENCOUNTER → 2023-04-01 07:41 | Outpatient (CLI) | payer BC, SELFPAY ==
--- NOTE | 2023-04-01 07:54 | CT_ITS ---
FINAL REPORT TECHNIQUE: Axial CT images of the chest were obtained without contrast. Low-dose protocol was utilized. This study was performed with techniques to keep radiation doses as low as reasonably achievable (ALARA). Individualized dose reduction techniques using automated exposure control or adjustment of mA and/or kV according to the patient's size were employed. CLINICAL HISTORY: H/O TOBACCO USE smoker 1 ppd x 30 years COMPARISON: 12/06/2021 FINDINGS: CT CHEST WITHOUT, LOW DOSE SCREENING CT Di Vol: 2.90 mGy DLP: 99.51 mGy*cm There is no axillary, mediastinal, or hilar mass or adenopathy. The heart size is normal. There is no pleural or pericardial effusion. The lung windows show a 4 mm left major fissure nodule, previously measured 3 mm, best seen on image 38. There is a 2 mm nodule in the medial right upper lobe seen on image 25. There is a new focal opacity in the left lung base measuring 3.4 cm transverse dimension favored to be inflammatory. Limited images of the upper abdomen demonstrate no acute findings. Postcholecystectomy. IMPRESSION: New focal opacity left lung base favored to be inflammatory. LR Category 0: 1 to 3-month chest CT follow-up recommended. Reviewed, Interpreted and Dictated by Dilshad Lyon III, MD Transcribed by Sophia Dhillon Authenticated and [facility]
== END ==
PROVIDERS: PCP Nurse Practitioner Family; Visit Provider Nurse Practitioner Family
DX: Z72.0 Tobacco use (principal); Z12.2 Encounter for screening for malignant neoplasm of respiratory organs
CPT/HCPCS: 71271

== ENCOUNTER 2023-06-08 07:08 | Outpatient (CLI) | payer BC, SELFPAY ==
--- NOTE | 2023-06-08 07:14 | CT_ITS ---
FINAL REPORT TECHNIQUE: Axial imaging of the chest was obtained without contrast. Reformatted images were also obtained and reviewed.This study was performed with techniques to keep radiation doses as low as reasonably achievable, (ALARA). Individualized dose reduction technique using automated exposure control or adjustment of mA and/or kV according to the patient's size were employed. CLINICAL HISTORY: LUNG NODULE COMPARISON: 04/01/2023 FINDINGS: There is no axillary adenopathy. There is no hilar or mediastinal mass or adenopathy. Heart size is normal. There is no pericardial or pleural effusion. There is a stable 3 mm nodule in the medial right upper lobe on image 21. There is also a stable 4 mm nodule at the left major fissure on image 34. Previously seen opacities of the left lung base have resolved. Limited imaging of the upper abdomen demonstrates postoperative change of cholecystectomy but is without acute abnormality. IMPRESSION: Stable medial right upper lobe and left major fissure nodules. Interval resolution of previously seen left lung opacities. Reviewed, Interpreted and Dictated by Dilshad Lyon III, MD Transcribed by Norma Harrington Authenticated and [facility]
== END 2023-06-08 23:59 ==
LOC: RAD 07:08
PROVIDERS: PCP Nurse Practitioner Family; Visit Provider Nurse Practitioner Family
DX: R91.8 Other nonspecific abnormal finding of lung field (principal)
CPT/HCPCS: 71250

== ENCOUNTER 2023-08-24 10:39 | Outpatient (CLI) | payer BC, SELFPAY ==
--- NOTE | 2023-08-24 10:47 | CA_ITS ---
FINAL REPORT TECHNIQUE: Compression park scale and Doppler evaluation CLINICAL HISTORY: NO DVT OR SVT SEEN IN THE RIGHT LOWER EXTREMITY 1.3 X 1.5CM CYSTIC LESION SEEN IN THE RIGHT POPLITEAL FOSSA, PROBABLE HOYOS'S CYST COMPARISON: None FINDINGS: Femoral and popliteal veins show normal compressibility and flow. Note is made of a small 1.3 x 1.5 cm hypoechoic focus in the popliteal fossa most consistent with a popliteal cyst. Visualized portion of the calf veins are patent by Doppler exam. IMPRESSION: No evidence of right lower extremity deep venous thrombosis Reviewed, Interpreted and Dictated by Chandler Olguin MD Transcribed by Myesha Henley Authenticated and [facility]
== END 2023-08-24 23:59 | disposition home or self-care (01) ==
LOC: RT 10:41
PROVIDERS: PCP Nurse Practitioner Family; Visit Provider Nurse Practitioner Family
DX: M79.89 Other specified soft tissue disorders (principal)
CPT/HCPCS: 93971

== ENCOUNTER 2023-09-07 15:04 | Outpatient (CLI) | payer BC, SELFPAY ==
--- NOTE | 2023-09-07 15:09 | XR_ITS ---
FINAL REPORT CLINICAL HISTORY: PAIN: JOINT, ANKLE AND RT FOOT FINDINGS: RIGHT FOOT 3 views of the right foot were obtained. There is no acute fracture or dislocation. There are mild degenerative changes. Calcaneal spurs are noted. Visualized joint spaces are normally aligned. Soft tissues are unremarkable. IMPRESSION: No acute bony abnormality. Reviewed, Interpreted and Dictated by Dilshad Lyon III, MD Transcribed by Norma Harrington Authenticated and [facility]
--- NOTE | 2023-09-07 15:11 | XR_ITS ---
FINAL REPORT CLINICAL HISTORY: PAIN: JOINT, ANKLE, AND RIGHT FOOT FINDINGS: RIGHT ANKLE 3 views of the right ankle were obtained. There is no acute fracture or dislocation. There are mild degenerative changes. The mortise is intact. Visualized joint spaces are normally aligned. Lateral soft tissue swelling is noted. IMPRESSION: No acute bony abnormality. Reviewed, Interpreted and Dictated by Dilshad Lyon III, MD Transcribed by Norma Harrington Authenticated and [facility]
== END 2023-09-07 23:59 | disposition home or self-care (01) ==
LOC: RAD 15:05
PROVIDERS: PCP Nurse Practitioner Family; Visit Provider Nurse Practitioner Family
DX: M25.571 Pain in right ankle and joints of right foot (principal)
CPT/HCPCS: 73610; 73630

== ENCOUNTER 2023-10-30 11:37 | Emergency (ER) | payer BC, SELFPAY ==
[2023-10-30 11:38] VITALS: BP 122/69; PULSE 70; RESP 18; TEMP 36.7; O2SAT 99; BMI 29.7
--- NOTE | 2023-10-30 11:55 | ED_ITS ---
Discharge Plan Disposition Patient Disposition: Home, Self-Care Condition: Good Prescriptions Prescriptions: New clindamycin HCl 300 mg capsule 300 mg PO Q8H Qty: 30 0RF mupirocin 2 % ointment 1 applic topical TID 7 Days Qty: 15 0RF No Action citalopram 40 mg tablet 40 mg PO DAILY Patient Comments: TAKE ONE TABLET BY MOUTH EVERY DAY estradiol [Estrace] 0.01 % (0.1 mg/gram) cream 1 g vaginal .everyQHS 2 weeks Qty: 42.5 8RF Rx Instructions: Patient is to use every night for 2 weeks then twice weekly mecobalamin (vitamin B12) 5,000 mcg tablet,chewable 5,000 mcg PO DAILY cetirizine 10 MG tablet 10 mg PO DAILY ergocalciferol (vitamin D2) 400 UNIT tablet 400 unit PO DAILY hydrochlorothiazide 12.5 MG tablet 12.5 mg PO DAILY Referrals Follow up/Referrals: Mirela Siegel APRN [Primary Care Provider] - See instructions Jayden Anaya MD [Staff Physician] - See instructions Activity Restrictions/Add. Instructions Additional Instructions/Restrictions: Apply warm wet compresses to the affected sites three or four times per day for 15 minutes as tolerated. Take the antibiotics as directed. Follow up with your regular doctor. Follow up with the surgeon. I put in a referral to Dr. Anaya. Please call his office and get an appointment to be seen there. His office phone number will be on this paperwork. GO TO THE ER FOR ANY WORSENING SYMPTOMS OR CONCERNS Clinical Impressions Clinical Impression: Abscess of breast Instructions Patient Instructions: Incision and Drainage of a Skin Abscess, DI for Skin Abscess Discharge ED Provider: Manuel Harden [facility] General Stated complaint: cyst between breats pain Time Seen by Provider: 10/30/23 11:55 History of Present Illness Provider Complaint: She states she has had a swollen painful area on her chest between her breast for the past 5 days. She has a history of having a similar issue in this same area several years ago that she had to have drained. She requests to have this area drained today. Related Data Home Medications Medication Instructions Recorded Confirmed cetirizine 10 mg tablet 10 mg PO DAILY Allergy symptoms 01/05/19 10/30/23 ergocalciferol (vitamin D2) 10 mcg 400 unit PO DAILY Supplement 01/05/19 10/30/23 (400 unit) tablet hydrochlorothiazide 12.5 mg tablet 12.5 mg PO DAILY bp 01/05/19 10/30/23 citalopram 40 mg tablet 40 mg PO DAILY 03/17/23 10/30/23 mecobalamin (vitamin B12) 5,000 5,000 mcg PO DAILY 06/10/23 10/30/23 mcg chewable tablet Previous Rx's Medication Instructions Recorded estradiol 0.01% (0.1 mg/gram) 1 g vaginal .everyQHS 2 weeks 03/17/23 vaginal cream (Estrace) #42.5 grams clindamycin HCl 300 mg capsule 300 mg PO Q8H #30 caps 10/30/23 mupirocin 2 % topical ointment 1 applic topical TID 7 days #15 10/30/23 grams Allergies Allergy/AdvReac Type Severity Reaction Status Date / Time oxycodone [From Percocet] AdvReac DROWSINESS Verified 10/30/23 12:00 [facility] Disclaimer: The information contained in this section may have been updated after the patient was seen, as this information can be updated by other users. Medical History (Updated 10/30/23 @ 12:28 by Manuel Harden APRN) Dyspnea on exertion Encounter for screening for malignant neoplasm of lung Multiple lung nodules on CT Smoking greater than 30 pack years Allergies History of gastroesophageal reflux (GERD) Hyperlipidemia Hypertension Gout Surgical History History of bilateral tubal ligation History of cholecystectomy History of back surgery Family History Other Family history of acute congestive heart failure Family history of diabetes mellitus type II Family history of hyperlipidemia Family history of hypertension Family history of stroke Social History Smoking Status: Current every day smoker tobacco type: cigarettes packs per day: 1 alcohol intake: never substance use type: denies use current occupational status: retired Travel in the last 8 weeks: None household members: none housing: house lives independently: Yes marital status: education level: high school service: No fci: No current occupation: [employer] current occupational exposures/hazards: No caffeine: No special leslie needs: No do you feel safe at home: Yes victim of physical abuse: No victim of emotional abuse: No victim of sexual abuse: No would you like helpful sources: No ROS Obtained: Yes All systems reviewed & no additional complaints except as documented Constitutional Constitutional: Denies chills and Denies fever(s) Eyes Eyes: Denies eye discharge ENT Ears, Nose, Mouth, and Throat: Denies dizziness, Denies otalgia and Denies sore throat Cardiovascular Cardiovascular: Denies chest pain Respiratory Respiratory: Denies shortness of breath, Denies chest congestion, Denies cough, Denies stridor and Denies wheezing Gastrointestinal Gastrointestingal: Denies nausea or vomiting Musculoskeletal Musculoskeletal: Reports system reviewed and no additional complaints, except as documented and Denies arthralgias Integumentary/Breasts Skin/Breast: Reports as per HPI and Reports redness Neurologic Neurologic: Denies dizziness and Denies paresthesias Allergic/Immunologic Allergic/Immunologic: Denies wheezing Physical Exam General General appearance: alert and in no apparent distress Head Head exam: atraumatic, normocephalic and normal inspection Eye Eye exam: Present normal appearance, PERRL and EOMI ENT ENT exam: Present normal exam, normal oropharynx, mucous membranes moist, TM's normal bilaterally and normal external ear exam Neck Neck exam: Present normal inspection, full ROM and trachea midline; Absent meningismus or lymphadenopathy Chest Chest inspection: Present normal inspection and symmetric chest wall rise; Absent tenderness Respiratory Respiratory exam: Present normal lung sounds bilaterally; Absent respiratory distress Cardiovascular Cardiovascular exam: Present regular rate and normal rhythm; Absent JVD Abdominal Exam Abdominal exam: Present soft and normal bowel sounds; Absent distention, tenderness or guarding Extremities Exam Extremities exam: Present normal inspection, full ROM and normal capillary refill; Absent calf tenderness Back Exam Back exam: Present normal inspection; Absent tenderness Neurological Exam Neurological exam: Present alert and oriented X3 Psychiatric Psychiatric exam: Present normal affect and normal mood Skin Skin exam: Present other (on the center of her chest she has an erythemic area that measures 3 cm diameter. there is induration beneath it. there is no open wound or drainage) Lymphatic Lymphatic Findings: no adenopathy Medical Decision Making Medical Records Medical records reviewed: No I reviewed the patient's medical records. Maged Inquiry Pt receiving controlled substance: No Procedures Risk/Benefits of Procedure(s) Were Explained: Yes Abscess I/D Site: chest Local Anesthetic: lidocaine 1% Amount of anesthesia used (mL): 2 Technique: incised with #11 blade Amount of fluid expressed (mL): 10 Irrigation: No Packing used?: none Complications: other (no complications, she tolerated this well, a large amount of tannish drainage was expressed from the lesion after incision with #11 blade. culture was obtained and sent to lab. )
[2023-10-30 12:42] VITALS: BP 122/69; PULSE 70; RESP 18; TEMP 36.7; O2SAT 99
--- NOTE | 2023-10-30 12:44 | PC.NURSE ---
Sent wound culture to lab via tube system
== END 2023-10-30 12:42 | disposition home or self-care (01) ==
PROVIDERS: Emergency Provider Nurse Practitioner Family; PCP Nurse Practitioner Family
DX: N61.1 Abscess of the breast and nipple (principal)
CPT/HCPCS: 10060; 87070; 87205; 99213; 99214; G0463

== ENCOUNTER 2024-03-16 14:17 | Outpatient (CLI) | payer BC, SELFPAY ==
--- NOTE | 2024-03-16 14:22 | MM_ITS ---
PROCEDURE INFORMATION: Exam: MG Bilateral Screening 3D Mammography Exam date and time: 03/16/2024 2:29 PM Age: 58 years old Clinical indication: Screening. No family history of breast cancer. TECHNIQUE: Imaging protocol: Bilateral Screening tomosynthesis and 2D mammography including computer-aided detection (CAD) when performed. COMPARISON: 1. MG MY Digital Screen BILAT 10/10/2021 1:49 PM 2. MG MY Digital Screen BILAT 10/08/2020 2:54 PM FINDINGS: MAMMOGRAPHY: Breast composition: There are scattered areas of fibroglandular density. Mass: No suspicious mass. Architectural distortion: None. Calcifications: No suspicious calcifications. Asymmetric density: None. Skin thickening: None. Axillary adenopathy: None. IMPRESSION: No mammographic evidence of malignancy. Annual screening is recommended unless otherwise clinically indicated. ASSESSMENT: BI-RADS Category 1: Negative.
== END 2024-03-16 23:59 | disposition home or self-care (01) ==
LOC: RAD 14:19
PROVIDERS: PCP Nurse Practitioner Family; Visit Provider Internal Medicine Adolescent Medicine
DX: Z12.31 Encounter for screening mammogram for malignant neoplasm of breast (principal)
CPT/HCPCS: 77063; 77067

== ENCOUNTER 2024-06-13 16:08 | Outpatient (CLI) | payer BC, SELFPAY ==
--- NOTE | 2024-06-13 16:15 | XR_ITS ---
PROCEDURE INFORMATION: Exam: XR Lumbosacral Spine Exam date and time: 06/13/2024 4:22 PM Age: 58 years old Clinical indication: Low back pain; Additional info: Acute bilat low back apin TECHNIQUE: Imaging protocol: Radiologic exam of the lumbosacral spine. Views: 4 or 5 views. COMPARISON: MR LUMBAR SPINE WO/W CON 05/09/2021 5:21 PM FINDINGS: Bones/joints: There is normal anatomic alignment of the lumbosacral spine. No fracture or destructive bone lesion. There is multilevel chronic degenerative disc disease throughout the lumbosacral spine which has slightly progressed when compared to the prior MRI. Soft tissues: Unremarkable. Gastrointestinal tract: Significant constipation. Organs: Cholecystectomy. IMPRESSION: 1. Worsening chronic degenerative changes throughout the lumbosacral spine. No fracture identified. 2. Significant constipation.
== END 2024-06-13 23:59 | disposition home or self-care (01) ==
LOC: RAD 16:09
PROVIDERS: PCP Nurse Practitioner Family; Visit Provider Nurse Practitioner Family
DX: M54.50 Low back pain, unspecified (principal)
CPT/HCPCS: 72110

== ENCOUNTER 2024-07-01 07:54 | Outpatient (CLI) | payer BC, SELFPAY ==
--- NOTE | 2024-07-01 07:56 | CT_ITS ---
FINAL REPORT CLINICAL HISTORY: SCREENING current smoker 1ppd x40 years COMPARISON: 04/01/2023 FINDINGS: CT CHEST LOW DOSE SCREENING HISTORY: Screening exam for lung cancer. DOSE: CTDI vol: 2.90 mGy, DLP: 96.90 mGy*cm TECHNIQUE: Axial CT without IV contrast administration using low dose protocol. This study was performed with techniques to keep radiation doses as low as reasonably achievable, (ALARA). Individualized dose reduction techniques using automated exposure control or adjustment of mA and/or kV according to the patient's size were employed. No acute lung disease is present. There is a stable medial right upper lobe nodule measuring 2 mm well-seen on image 23 of series 3. The previously described 4 mm nodule along the left major fissure is also stable. Finding is best seen on image 145 of series 2. No pulmonary lesions are seen suspicious for neoplasm. No pleural or pericardial effusion is seen. No adenopathy or mass lesion is present. IMPRESSION: No suspicious pulmonary nodule. LUNG RADS CATEGORY 2 RECOMMENDATION: 12 month LDCT follow up Reviewed, Interpreted and Dictated by Chandler Olguin MD Transcribed by Dina Garland Authenticated and . [facility]
== END 2024-07-01 23:59 | disposition home or self-care (01) ==
LOC: RAD 07:55
PROVIDERS: PCP Nurse Practitioner Family; Visit Provider Internal Medicine Adolescent Medicine
DX: Z87.891 Personal history of nicotine dependence (principal)
CPT/HCPCS: 71271

== ENCOUNTER 2025-04-17 12:55 | Outpatient (CLI) | payer BC, SELFPAY ==
--- NOTE | 2025-04-17 12:57 | MM_ITS ---
PROCEDURE INFORMATION: Exam: MG Bilateral Screening 3D Mammography Exam date and time: 04/17/2025 1:15 PM Age: 59 years old Clinical indication: Screening examination TECHNIQUE: Imaging protocol: Bilateral Screening tomosynthesis and 2D mammography including computer-aided detection (CAD) when performed. COMPARISON: MG MM DIG SCREENING MAMM BI W/CAD 03/16/2024 2:29 PM FINDINGS: MAMMOGRAPHY: Breast composition: There are scattered areas of fibroglandular density. Mass: None. Architectural distortion: None. Calcifications: No suspicious calcifications. Asymmetric density: None. Skin thickening: None. Axillary adenopathy: None. IMPRESSION: No mammographic evidence of malignancy. Annual screening is recommended unless otherwise clinically indicated. ASSESSMENT: BI-RADS Category 1: Negative.
--- NOTE | 2025-04-17 12:57 | XR_ITS ---
FINAL REPORT CLINICAL HISTORY: SCREENING COMPARISON: None FINDINGS: Using L1-4, the bone mineral density of the spine is 1.123 g/cm2, corresponding to T-score of 0.7. Using the left hip, the bone mineral density of the femoral neck is 0.792 g/cm2, corresponding to a T-score of -0.5. Using the right hip, the bone mineral density of the femoral neck is 0.694 g/cm2, corresponding to a T-score of -1.4. NOTE: T-score: Standard deviation compared with peak bone mass of young adult mean. *Following the recommendations of the International Society of Bone densitometry, classification of hip BMD is based on the lower of two T-scores; total hip or femoral neck. IMPRESSION: Normal bone mineral density of the left hip and lumbar spine. Diminished bone mineral density of the right femoral neck, corresponding to osteopenia. Reviewed, Interpreted and Dictated by Chandler Olguin MD Transcribed by Myesha Henley Authenticated and [facility]
--- OUTSIDE RECORDS SUMMARY | 2025-04-17 13:02 | XMS_ITS | Data Portability ---
Author Organization SARAH JESUSITA [facility] Address [address] [facility] [facility] [address] [place] [address] Care Team Providers Care Operations Research Group Manager Name Role Phone LATOYA DELGADO Primary Care Provider Assessment Encounter Date Assessment Date Assessment LastModified by Organization Details LastModified Time 07/08/2021 07/08/2021 Mrs. 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 I'm recommending a minimally invasive L3-4 discectomy for relief of her L4 radicular pain. We discussed the procedure in detail. We discussed the risks and benefits. Specific risks that we discussed included general anesthesia, infection, spinal fluid leakage and recurrent disc herniation. She would like to proceed with surgery. She will speak with Alyse, our surgery coordinator, and find a date for surgery. Not available 07/08/2021 11:36:14 09/09/2021 09/09/2021 Mrs. Washington continues to progress well after a minimally invasive right L3-4 discectomy. She understands that she needs to be somewhat careful the next 6 weeks, and may stay off work if needed. Her lifting restriction should be approximately 25 pounds. I encouraged her to walk and exercise. She'll be released from my care, but understands she can call at any time with questions or concerns. Not available 09/09/2021 11:11:43 Plan of Treatment Reminders Order Date Submit Date Provider Last Modified By Organization Details Last Modified Time Details Appointments None record ed. Lab None record ed. Referral None record ed. Procedures None record ed. Surgeries None record ed. Imaging None record ed. Medication Orders None record ed. Patient TargetsNo targets recorded. Patient InstructionsNo instructions recorded. Reason for Referral None Reported. Results Created Date Observation Date Name Description Value Unit Range Abnormal Flag Note LastModifiedBy Organization Detail LastModifiedTime 07/10/19 22 10/22/2020 XR, lumbo sacra l spine , 4 or more view No observ ation record ed. BARCODE Not Available 2021 09:36:03 07/10/19 22 05/09/2021 MRI, lumba r spine , w/wo contr ast No observ ation record ed. BARCODE Not Available 2021 09:36:03 08/10/19 22 08/09/2021 fluor oscop y (PROC ) No observ ation record ed. [email or web address] [facility] [address] [facility] [address], [place], [address], 08/13/2021 11:13:57 Result Notes None recorded. Procedures Surgical History Date Name Laterality Status Provider Name and Address Organization Details Recorded Time 08/10/19 LAMINOTOMY (HEMILAMINECTOMY), DECOMPRESSION OF NERVE ROOTS, PARTIAL FACECTOTOMY, FORAMINOTOMY AND/OR DISC REMOVAL, LUMBAR (SURG) completed [facility] 08/13/2021 08:35:00 Back Surgery completed [facility] 07/08/2021 10:42:42 Neck Surgery completed [facility] 07/08/2021 10:42:49 Cholecystectomy completed [facility] 07/08/2021 10:43:10 Imaging Results None recorded. Procedure Notes None recorded. Medical Equipment None Reported. Allergies Allergen ID Allergen Name Allergen Category Reaction Reaction Severity Criticality Documentation Date Start Date Code Code System Note Provider Name and Address Organization Details Recorded Time 045827 acetamino phen / oxycodone medicatio n Not available Not available Not available 03/20/20162012 81636 3 RxNorm Comme nt: Creat ed By: Bryn dunbarCre atecollin Date: 2012 9:10: 22 AM; Not Available [facility] 14:20:33 Medications Name Sig Start Date Stop Date Status Note LastModified by Organization Details LastModified Time promethazin e-DM 6.25 mg-15 mg/5 mL oral syrup TAKE 1 TEASPOONF UL (5 ML) BY MOUTH EVERY 6 HOURS NEEDED FOR cough MAY CAUSE DROWSINES S active Not Available Not Available No t Available cetirizine 10 mg tablet TAKE ONE TABLET BY MOUTH EVERY DAY NEEDED active Not Available Not Available No t Available azithromyci n 250 mg tablet TAKE 2 TABLETS BY MOUTH ON DAY 1, AND THEN TAKE 1 TABLET BY MOUTH ONCE A DAY ON DAY 2 THROUGH DAY 5 07/08 completed Not Available Not Available Not Available tizanidine 4 mg tablet 07/08 completed Not Available Not Available Not Available fluconazole 150 mg tablet TAKE ONE TABLET BY MOUTH NOW A ONE-TIME DOSE THEN REPEAT DOSE in 3 DAYS active Not Available Not Available No t Available prednisone 20 mg tablet TAKE ONE TABLET BY MOUTH EVERY DAY FOR 7 DAYS -- FINISH ALL MEDICINE -- 07/08 completed Not Available Not Available Not Available oxycodone-a cetaminophe n 5 mg-325 mg tablet TAKE ONE TABLET BY MOUTH EVERY 6 HOURS NEEDED MAY CAUSE DROWSINES S active Not Available Not Available No t Available citalopram 20 mg tablet TAKE ONE TABLET BY MOUTH EVERY DAY active Not Available Not Available No t Available hydrocodone 7.5 mg-acetamin ophen 325 mg tablet Take 1 tablet every 6 hours by oral route as needed. active Not Available Not Available No t Available dexamethaso ne 4 mg tablet 07/08 completed Not Available Not Available Not Available nicotine 21 mg/24 hr daily transdermal patch apply 1 PATCH topically EVERY DAY -- FOR EXTERNAL USE ONLY-- active Not Available Not Available No t Available hydrochloro thiazide 12.5 mg capsule TAKE ONE CAPSULE BY MOUTH EVERY DAY active Not Available Not Available No t Available diclofenac sodium 75 mg tablet,luisito yed release TAKE ONE TABLET BY MOUTH TWICE DAILY --TAKE WITH FOOD-- 07/08 completed Not Available Not Available Not Available montelukast 10 mg tablet TAKE ONE TABLET BY MOUTH EVERY DAY active Not Available Not Available No t Available gabapentin 100 mg capsule TAKE 1 TO 2 CAPSULE(S ) BY MOUTH EVERY DAY AT BEDTIME MAY CAUSE DROWSINES S 03/14 /2022 completed Not Available Not Available Not Available methylpredn isolone 4 mg tablets in a dose pack TAKE BY MOUTH DIRECTED ON INSIDE OF PACKAGE 07/08 completed Not Available Not Available Not Available fluticasone propionate 50 mcg/actuati on nasal spray,suspe nsion instill 2 SPRAY IN EACH NOSTRIL EVERY DAY 07/08 completed Not Available Not Available Not Available Celexa 40 mg tablet Daily 07/08 completed Frequ ency: daily ;Medi catio n Descr iptio n: cital opram ; Dosag e:1; Route :oral ; refil ls:0 Not Available Not Available Not Available amoxicillin 875 mg-potassiu m clavulanate 125 mg tablet TAKE ONE TABLET BY MOUTH EVERY TWELVE HOURS --TAKE WITH FOOD-- active Not Available Not Available No t Available cyclobenzap rine 5 mg tablet TAKE ONE TABLET BY MOUTH TWICE DAILY NEEDED FOR muscle SPASMS MAY CAUSE DROWSINES S 07/08 completed Not Available Not Available Not Available bupropion HCl XL 150 mg 24 hr tablet, extended release TAKE ONE TABLET BY MOUTH EVERY DAY active Not Available Not Available No t Available aspirin Daily active Frequ ency: daily ;Medi catio n Descr iptio n: aspir in; refil ls:0 Not Available Not Available Not Available Chantix Starting Month Box 0.5 mg (11)-1 mg (42) tablets in dose pack active Not Available Not Available No t Available EC-Naproxen 500 mg tablet,luisito yed release 07/08 completed Not Available Not Available Not Available Vitals Date Recorded Body height Body mass index (BMI) Body weight Systolic And Diastolic Provider Name and Address Organization Details Last Updated DateTime 07/08/2021 170.18 cm 34 kg/m2 70286.54 g 120/80 mm[Hg] [facility] 07/08/2021 10:49:55 Date Recorded Body height Body mass index (BMI) Body weight Systolic And Diastolic Provider Name and Address Organization Details Last Updated DateTime 09/09/2021 170.18 cm 34 kg/m2 40261.54 g 120/82 mm[Hg] [facility] 09/09/2021 10:54:27 Social History None recorded. Functional Status None recorded. Mental Status None recorded. Family History Relationship Description Onset Age of this Age Resolved Age Notes LastModified by Organization Details LastModified Time Unspecified Relation Hypertensive disorder [email or web address] Not available 07/08 10:42:19 Unspecified Relation Myocardial infarction [email or web address] Not available 06/25 10:42:24 Medical History Condition Response Arthritis Y Hypertension Y Gynecological HistoryNo gynecological history recorded. Obstetrics History GPAL:G 0 P 0 0 0 0 Past Encounters Encounter ID Performer Location Encounter Start Date Encounter Closed Date Diagnosis/Indication Diagnosis SNOMED-CT Code Diagnosis ICD10 Code Diagnosis IMO Codes Diagnosis Note [id number] MARYCRUZ CAMPBELL MD [facility] [address] [place] [address] 07/08/2021 10:37:48 07/08/2021 16:49:52 Lumbar radiculopathy 089269595 M54.16 Time spent reviewing images, discussing the diagnosis and coordinati ng care: 30min [id number] MARYCRUZ CAMPBELL MD SURGERY SCHEDULE [address] [place] [address] 08/13/2021 09:45:29 08/13/2021 16:03:15 [id number] MARYCRUZ CAMPBELL MD [facility] [address] [place] [address] 09/09/2021 10:50:40 09/11/2021 16:12:50 Postoperative care [id number] Z48.89 Health Concerns Section Related Observation LastModified by Organization Detai ls LastModified Time None Recorded Concern Status LastModified by Organization Details LastModified Time None Recorded Advance Directives Directive None Recorded Payers Insurance Date Sequence Insurance Name Policy Number Policy Hunt Covered Member ID Hunt Member ID Guarantor Name 09/06/2021 1 [place] [id number] 2 Delmy Washington [id number] Delmy Washington Notes Date Note Type Note Provider Name and Address Organization Details Recorded Time 07/08/2021 text/html Mrs. Washington is a 55-year-old female with a history of a 2 level ACDF by myself on December 17, 2012. She presents with severe right hip and leg pain across the knee since October. She denies any inciting event. The pain is 8 out of 10 and described as sharp and shooting. The pain is constant, better with rest, and worse with standing and walking. She describes right lower extremity numbness, tingling and weakness. No loss of bowel or bladder control. She has done physical therapy, steroid packs and daily anti-inflammatori es without relief. She presents today with an MRI of the lumbar spine performed at [facility] on May 09, 2021. MARYCRUZ CAMPBELL MD [address] [place] [address] [place], [address], [facility] 07/08/2021 13:15:12 09/09/2021 text/html ROS as noted in the HPI Mrs. Washington is doing well after a minimally invasive right L3-4 discectomy performed on August 09, 2020. She still has some occasional pain but this is improving. MARYCRUZ CAMPBELL MD [facility] [place], [address], [facility] 09/09/2021 11:11:54 OBGyn Episode No OBEpisode recorded.
--- OUTSIDE RECORDS SUMMARY | 2025-04-17 13:02 | XMS_ITS | Referral Summary ---
Author Organization [employer] [facility] [employer] ([place], [place], [place], [place], [place]) Address [address] [place] [address] Care Team Providers Care Stroboroma Operator Name Role Phone Reginald Verma MD Primary Care Provider [phone] Social History Tobacco Use Types Packs/Day Years Used Date Smoking Tobacco: Never Assessed Food Insecurity Answer Date Recorded Food run out past 12 months Not on file 04/27 Food did not last past 12 months Not on file 05/15/2023 Employment Answer Date Recorded Help finding and keeping a job Not on file 0 05/15/2023 Family and Community Support Answer Rosalio e Recorded Help with Day to Day Activities Not on file 05/15/2023 Feeling Lonely or Isolated Not on file 05/15 Educational Attainment Answer Date Josiah rded Speak language other than [place] at home Not on file 05/15/2023 Want help with school or training Not on file 05/15/2023 Substance Use Answer Date Recorded Used prescription meds for non-medical reasons N ot on file 05/15/2023 Used illegal drugs past 12 months Not on file 05/15/2023 Comments Unknown Sex and Gender Information Value Date Recorded Sex Assigned at Female 10/22/2021 5:50 PM CDT Legal Sex Female 5:50 PM CDT Gender Identity Female 10/22/2021 5:50 PM CDT Sexual Orientation Not on file Plan of Treatment Not on file Procedures Procedure Name Priority Date/Time Associated Diagnosis Comments MM DIGITAL MAMMO SCREEN WITH ORLIN BILATERAL Routine 10/14/2022 2:37 PM EDT Visit for screening mammogram from Last 3 Months or Most Recently Relevant to Health Maintenance Results * MM digital mammo screen with orlin bilateral (10/14/2022 2:37 PM EDT) Anatomical Region Laterality Modality Breast Bilateral Mammography 10/14/2022 3:39 PM EDT Impressions 10/14/2022 3:43 PM EDT FINAL IMPRESSION: ACR BI-RADS 1: Negative. RECOMMENDATIONS: Annual screening mammography. A letter including results and recommendations was sent to the patient. Density notification was included for patients with pattern 3 or 4 breast tissue. Patient information was entered into a reminder system with a target due date for the next mammogram. At our facility, a [place] marker is positioned over a visible skin lesion and a linear marker is used to indicate a scar. A triangular marker is placed on a self reported palpable finding. Note: Mammography does not detect approximately 10-15% of breast cancers. An annual clinical breast exam by the patient's breast care physician and regular monthly self breast exams by the patient are integral parts of breast cancer screening, in addition to annual mammography. A normal mammogram does not completely exclude the presence of breast cancer, especially if there is an abnormal finding on physical exam. When clinically indicated, a biopsy should not be deferred because of a normal mammogram report. Narrative 10/14/2022 3:43 PM EDT PROCEDURE: Digital screening mammogram with Digital Breast Tomosynthesis (DBT). REASON FOR EXAM: Routine screening. FAMILY HISTORY: No family history of breast cancer. COMPARISON STUDY: 2021 through 2016 from [facility] FINDINGS: Craniocaudal and mediolateral oblique images of both breasts were obtained in 2D and DBT modes. Synthesized views were reconstructed from DBT data. The breast tissue has pattern b (scattered fibroglandular densities). There is no evidence of dominant mass, architectural distortion, or suspicious calcifications. The mammogram was interpreted with the benefit of computer aided detection (CAD). Reginald Verma MD IM MAMMOGRAPHY ORDERABLES F inal Result from Last 3 Months or Most Recently Relevant to Health Maintenance Insurance BLUE CROSS/BLUE SHIELD Care Teams Stroboroma Operator Relationship Specialty Start Date End Date Reginald Verma MD [address] [place] [address] [place] [id number] PCP - General Adolescent Medicine 10/14/22
--- OUTSIDE RECORDS SUMMARY | 2025-04-17 13:02 | XMS_ITS | Clinical Summary ---
Author Organization [employer] ([place], [place], [place], [place], [place]) Address [address] [place] [address] Care Team Providers Care Addiction Therapist Name Role Phone Reginald Verma MD Primary Care Provider [phone] Social History Tobacco Use Types Packs/Day Years [...] Date Josiah rded Speak language other than Citizen Of [place] at home Not on file 05/15/2023 Want [...] Orientation Not on file Plan of Treatment Health Maintenance Due Date Last Done Comments CT Colonography 1964 Colonoscopy 1964 Colorectal Cancer Screening 1964 FOBT/FIT 1964 Fit-DNA (Cologuard) 1964 Sigmoidoscopy 1964 Depression Screening (12+) 1976 Tobacco Cessation Counseling and Screening (12+) 1976 HIV Screening 09/03/1979 Hepatitis C Screening 1982 DTAP/TDAP/TD VACCINES (1 - Tdap) 09/03/1983 Pap Smear 1985 Lipid Panel 2009 Pneumococcal 50+ years (1 of 1 - PCV) 2014 Shingles Vaccine (Zoster) (1 of 2) 2014 Breast Cancer Screening 10/14/2024 10/15/19 23, 10/10/2021, 10/08/2020, Additional history exists COVID-19 VACCINE (1 - 2023-2 5 season) 2024 Influenza Vaccine (#1) 2024 Procedures Procedure Name Priority Date/Time Associated Diagnosis [...] the next mammogram. At our facility, a [place] marker is positioned over a visible skin [...] cancer. COMPARISON STUDY: 2021 through 2016 from [facility] FINDINGS: Craniocaudal and mediolateral oblique images of both breasts were obtained in 2D and DBT modes. Synthesized views were reconstructed from DBT data. The breast tissue has pattern b (scattered fibroglandular densities). There is no evidence of dominant mass, architectural distortion, or suspicious calcifications. The mammogram was interpreted with the benefit of computer aided detection (CAD). Reginald Verma MD IMG MAMMOGRAPHY ORDERABLES F inal Result from Last 3 Months or Most Recently Relevant to Health Maintenance Insurance E [place] [id number] BLUE CROSS/BLUE SHIELD Care Teams Addiction Therapist Relationship Specialty Start Date End Date Reginald Verma MD [address] [place] [address] [place] [id number] PCP - General Adolescent Medicine 10/14/22
--- OUTSIDE RECORDS SUMMARY | 2025-04-17 13:02 | XMS_ITS | Clinical Summary ---
[facility] Address [address] [place] [address] Care Team Providers Care Last Waxer Name Role Phone Provider, No Known Primary Care Provider Unavail able Allergies No known active allergies Medications montelukast (SINGULAIR) 10 MG tablet Take 10 mg by mouth As Needed. Active cetirizine (zyrTEC) 10 MG tablet Take 10 mg by mouth As Needed for Allergies. Active aspirin 81 MG EC tablet Take 81 mg by mouth Daily. Active hydrochlorothiaz deb (MICROZIDE) 12.5 MG capsule Take 12.5 mg by mouth Every Morning. Active amoxicillin-clav ulanate (AUGMENTIN) 875-125 MG per tabletIndication s:Bronchitis Take 1 tablet by mouth 2 (Two) Times a Day. 20 tablet 03/18/2017 Active Family History Medical History Relation Name Comments Heart disease Father Relation Name Status Comments Father Social History Tobacco Use Types Packs/Day Years Used Date Smoking Tobacco: Every Day Cigarettes 1 25 Smokeless Tobacco: Never Alcohol Use Standard Drinks/Week Comments No 0 (1 standard drink = 0.6 oz pur e alcohol) Abuse Screen Answer Date Recorded Unsafe at Home or Work/School Not on file Feels Threatened by Someone? Not on file 12/2022 Does Anyone Keep You from Co ntacting Others or Doint Things Outside the Home? Not on file 02/02/2023 Physical Sign of Abuse Present Not on file 1 Housing Stability Answer Date Recorded Current Living Arrangements Not on file 12/2022 Potentially Unsafe Housing Conditions Not on tien e 02/02/2023 Family and Community Support Answer Rosalio e Recorded Help with Day-to-Day Activities Not on file 02/02/2023 Lonely or Isolated Not on file 02/02/2023 Employment Answer Date Recorded Do you want help finding or keeping work or a jose g b? Not on file 02/02/2023 Disabilities Answer Date Recorded Concentrating, Remembering, or Making Decisions Difficulty Not on file 02/02/2023 Doing Errands Independently Difficulty Not on fi le 02/02/2023 Education Answer Date Recorded Help with school or training? Not on file Preferred Language Not on file 02/02/2023 Comments Unknown Sex and Gender Information Value Date Recorded Sex Assigned at Not on file Legal Sex Female 10:24 AM EDT Gender Identity Not on file Sexual Orientation Not on file Last Filed Vital Signs Vital Sign Reading Time Taken Comments Blood Pressure 110/85 03/18/2017 2:21 PM EST Pulse 94 03/18/2017 2:21 PM EST Temperature 36.6 C (97.9 F) 03/18/2017 2:21 PM EST Respiratory Rate 20 03/18/2017 2:21 PM EST Oxygen Saturation 98% 03/18/2017 2:21 PM EST Inhaled Oxygen Concentration - - Weight 99.3 kg (219 lb) 03/18/2017 2:21 PM EST Height 170.2 cm (5' 7 ) 03/18/2017 2:21 PM EST Body Mass Index 34.3 03/18/2017 2:21 PM EST Plan of Treatment Health Maintenance Due Date Last Done Comments Annual Gynecologic Pelvic and Breast Exam 1964 TDAP/TD VACCINES (1 - Tdap) 09/03/1983 MAMMOGRAM 2004 COLOGUARD 2009 COLON CANCER SCREENING 5 YEAR SIGMOIDOSCOPY 2009 COLONOSCOPY [address] S[address]EN[address] COLONOGRAPHY 2009 FECAL OCCULT BLOOD TEST 2009 FIT Testing (1 year) 2009 Pneumococcal Vaccine 50+ (1 of 1 - PCV) 2014 ZOSTER VACCINE (1 of 2) 2014 ANNUAL PHYSICAL 03/18/2017 HEPATITIS C SCREENING 03/18/2017 INFLUENZA VACCINE 11/25/2024 Insurance [employer] [facility] [employer] [employer] Care Teams Last Waxer Relationship Specialty Start Date End Date Provider, [place] [address] PCP - General 03/18/17
== END 2025-04-17 23:59 | disposition home or self-care (01) ==
LOC: RAD 12:55
PROVIDERS: PCP Nurse Practitioner Family; Visit Provider Nurse Practitioner Family
DX: Z12.31 Encounter for screening mammogram for malignant neoplasm of breast (principal); R92.323 Mammographic fibroglandular density, bilateral breasts; Z13.820 Encounter for screening for osteoporosis; Z78.0 Asymptomatic menopausal state; M85.88 Other specified disorders of bone density and structure, other site
CPT/HCPCS: 77063; 77067; 77080